=== PATIENT | female | born 1995 ===

== ENCOUNTER 2019-08-07 11:24 | Inpatient (IN) | payer BC ==
[2019-08-07] MEDS ORDERED: Bupivacaine/Epinephrine 0.25% 30 ML VIAL ONE (11:35)
[2019-08-07 12:42] VITALS: BMI 30.8
[2019-08-07] MEDS: Lactated Ringer's 1,000 ML IV SCH ×2 (12:45→18:50)
[2019-08-07] MEDS ORDERED: Acetaminophen 500 MG TAB PO PRN (13:40)
[2019-08-07] MEDS ORDERED: Diphenoxylate HCl/Atropine Tablet PO PRN ×2 (13:40)
[2019-08-07] MEDS ORDERED: Lidocaine 1% (PF) 30 ML VIAL SC PRN (13:40)
[2019-08-07] MEDS ORDERED: Misoprostol 200 MCG TAB PR PRN (13:40)
[2019-08-07] MEDS ORDERED: hydrALAZINE 20 MG/ML VIAL SLOW IVP PRN (13:40)
[2019-08-07] MEDS ORDERED: HYDROcodone/Acetaminophen 5/325 mg Tablet PO PRN ×2 (13:40)
[2019-08-07] MEDS ORDERED: Carboprost 250 MCG/ML AMP IM PRN (13:40)
[2019-08-07] MEDS ORDERED: Ondansetron PF 4 MG/2 ML Vial IVP PRN ×2 (13:40→19:41)
[2019-08-07] MEDS ORDERED: Promethazine HCl 25 MG/ML VIAL IM PRN ×2 (13:40→19:41)
[2019-08-07] MEDS ORDERED: NS / Oxytocin 40 units/1000ml 1,000 ML IV PRN (13:40)
[2019-08-07] MEDS ORDERED: Methylergonovine 0.2 MG/ML VIAL IM PRN (13:40)
[2019-08-07] MEDS ORDERED: Ibuprofen 800 MG TAB PO PRN (13:40)
[2019-08-07] MEDS ORDERED: Butorphanol Tartrate 1 MG/ML VIAL SLOW IVP PRN (13:40)
[2019-08-07 14:41] LABS: Hemoglobin 11.2 g/dL (12.0-16.0); Mean Corpuscular HGB CONC 34.5 g/dL (32.0-36.0); Mean Corpuscular Hemoglobin 30.4 pg (27.0-31.0); Mean Platelet Volume 10.1 fL (7.4-10.4); Platelet Count 180 thou/uL (130-400); RBC Distribution Width 12.9 % (11.5-14.5); Red Blood Cell (RBC) Count 3.69 mill/uL (4.20-5.40); White Blood Cell (WBC) Count 7.8 thou/uL (4.8-10.8)
[2019-08-07] MEDS ORDERED: NS w/ Oxytocin 10 units 500 ML IV SCH (15:00)
[2019-08-07 15:19] LABS: HBSAg Index 0.16 S/CO (0-0.99); Hep B Surf Ag Non-Reactive S/CO (NonReactive)
[2019-08-07 15:19] LABS: Syphilis Antibody Nonreactive (Nonreactive); Syphilis Antibody Index 0.07 S/CO (<1.00 Non-Reactive)
[2019-08-07] MEDS: Misoprostol 100 MCG TAB PO SCH (17:05)
[2019-08-07] MEDS ORDERED: Fentanyl 4 mcg/Bup 0.1% Cadd 100 ML ONE (19:03)
[2019-08-07] MEDS ORDERED: EPHEDRINE 25 MG/5 ML SYRINGE SLOW IVP PRN (19:41)
[2019-08-07] MEDS ORDERED: Acetaminophen 325 MG TAB PO PRN (19:41)
[2019-08-07] MEDS ORDERED: Naloxone HCl 0.4 mg/ml Vial IVP PRN ×2 (19:41)
[2019-08-07] MEDS ORDERED: Lactated Ringer's 500 ML IV PRN (19:41)
[2019-08-07] MEDS ORDERED: diphenhydrAMINE 50 MG/ML VIAL IVP PRN (19:41)
[2019-08-07] MEDS ORDERED: Communication Order-Pharmacy FS SCH (19:45)
[2019-08-07] MEDS ORDERED: Fentanyl 4 mcg/Bupivacaine 0.1% Cassette 100 ML EPIDURAL SCH (19:45)
[2019-08-07] MEDS ORDERED: CEFAZOLIN 2 GM in Premix Bag 1 BAG IVPB SCH (21:00)
[2019-08-07] MEDS ORDERED: Lidocaine 1% (PF) 30 ML VIAL ONE (23:36)
[2019-08-07] MEDS ORDERED: NS / Oxytocin 40 units/1000ml 1,000 ML ONE (23:36)
[2019-08-08] MEDS ORDERED: Lanolin Ointment 7 GM TUBE TOP PRN (03:49)
[2019-08-08] MEDS ORDERED: Zolpidem Tartrate 5 MG TAB PO PRN (03:49)
[2019-08-08] MEDS ORDERED: Methylergonovine 0.2 MG/ML VIAL IM PRN (03:49)
[2019-08-08] MEDS ORDERED: Benzocaine-Menthol 82.5 ML CAN TOP PRN (03:49)
[2019-08-08] MEDS ORDERED: diphenhydrAMINE 25 MG CAP PO PRN (03:49)
[2019-08-08] MEDS ORDERED: Preparation H Ointment 28 GM TUBE PR PRN (03:49)
[2019-08-08] MEDS ORDERED: HYDROcodone/Acetaminophen 5/325 mg Tablet PO PRN ×2 (03:49)
[2019-08-08] MEDS ORDERED: Ondansetron PF 4 MG/2 ML Vial IVP PRN (03:49)
[2019-08-08] MEDS ORDERED: Milk Of Magnesia 30 ML UDCUP PO PRN (03:49)
[2019-08-08] MEDS ORDERED: hydrALAZINE 20 MG/ML VIAL SLOW IVP PRN (03:49)
[2019-08-08] MEDS ORDERED: Misoprostol 200 MCG TAB VAG PRN (03:49)
[2019-08-08] MEDS ORDERED: Promethazine HCl 25 MG/ML VIAL IM PRN (03:49)
[2019-08-08] MEDS ORDERED: Bisacodyl 10 MG SUPP PR PRN (03:49)
[2019-08-08] MEDS ORDERED: NS / Oxytocin 40 units/1000ml 1,000 ML IV SCH (03:49)
[2019-08-08] MEDS: Misoprostol 100 MCG TAB PO SCH (04:50)
[2019-08-08] MEDS: Ibuprofen 800 MG TAB PO SCH ×3 (05:24→21:23)
[2019-08-08] MEDS: Ferrous Sulfate 325 MG TAB PO SCH ×2 (08:34→20:50)
[2019-08-08] MEDS: Docusate Calcium (SURFAK) 240 MG CAP PO SCH ×2 (08:37→21:23)
[2019-08-08] MEDS: Prenatal Vitamin 1 TAB PO SCH (08:37)
[2019-08-08] MEDS ORDERED: Adacel (T-DAP) 0.5 ML SYRINGE IM ONE (09:00)
[2019-08-08] MEDS ORDERED: Measles/Mumps/Rubella 10 MCG/0.5 ML VIAL SC ONE (09:00)
[2019-08-08] MEDS ORDERED: Varicella virus, LIVE 0.5 ML VIAL SC ONE (09:00)
[2019-08-09] MEDS: Ibuprofen 800 MG TAB PO SCH ×3 (05:40→21:42)
[2019-08-09 06:36] LABS: Hemoglobin 10.1 g/dL (12.0-16.0); Mean Corpuscular HGB CONC 33.6 g/dL (32.0-36.0); Mean Corpuscular Volume 89.3 fL (78.0-98.0); Mean Platelet Volume 9.3 fL (7.4-10.4); Platelet Count 149 thou/uL (130-400); RBC Distribution Width 12.8 % (11.5-14.5); Red Blood Cell (RBC) Count 3.37 mill/uL (4.20-5.40); White Blood Cell (WBC) Count 8.9 thou/uL (4.8-10.8)
[2019-08-09] MEDS: Docusate Calcium (SURFAK) 240 MG CAP PO SCH ×2 (08:36→21:43)
[2019-08-09] MEDS: Prenatal Vitamin 1 TAB PO SCH (08:36)
[2019-08-09] MEDS: Ferrous Sulfate 325 MG TAB PO SCH ×2 (08:40→18:05)
--- NOTE | 2019-08-09 14:40 | PDOC.LDHP ---
Labor and Delivery H&P Chief complaint: loss of fluid HPI: 23 y/o at 38 and 6/7 weeks presents with SROM and early labor. Current gestational age (weeks): 38 Due date: 08/15/19 Grav: 1 Para: 0 Current complications: none Abnormal US findings: No Current medications: pre-rommel vitamins Previous surgical history: none Allergies/Adverse Reactions: Allergies Allergy/AdvReac Type Severity Reaction Status Date / Time No Known Allergies Allergy Unverified 08/07/19 12:39 Social history: none - Physical Exam Vital signs reviewed and normal: yes General: NAD, resting Lungs: CTAB Abdomen: gravid FHT: category 1 - Assessment L&D Assessment: term rupture in membranes - Plan Plan: admit to L&D, labor augmentation if indicated
--- NOTE | 2019-08-09 14:46 | PDOC.PP ---
Post Progress Note Post Day #: 1 PO intake tolerated: yes Flatus: yes Ambulation: yes Vital Signs (12 hours) Temp Pulse Resp BP Pulse Ox 08/09/19 08:03 98.1 F 81 20 129/85 99 Weight Weight 163 lb - Physical Examination General: NAD Cardiovascular: no m/r/g, RRR Respiratory: clear to auscultation bilaterally Abdominal: + bowel sounds, lochia, no distention Extremities: negative homans (B) Neurological: no gross focal deficits Psychiatric: A&Ox3, normal affect (DC planned later today) Result Diagrams: 08/09/19 06:27 Additional Labs: Post Labs Blood Type O POSITIVE 08/07/19 15:26 Hep Bs Antigen Non-Reactive S/CO (NonReactive) 08/07/19 14:24
[2019-08-10] MEDS: Ibuprofen 800 MG TAB PO SCH (05:22)
[2019-08-10 08:15] VITALS: BP 126/78; TEMP 98.5
[2019-08-10] MEDS: Ferrous Sulfate 325 MG TAB PO SCH (08:15)
[2019-08-10] MEDS: Docusate Calcium (SURFAK) 240 MG CAP PO SCH (09:13)
[2019-08-10] MEDS: Prenatal Vitamin 1 TAB PO SCH (09:13)
== END 2019-08-10 11:20 | disposition home or self-care (01) | DRG 806 ==
LOC: L&D/OP 11:24 → L&D 17:34 → 3SW 08-08 04:45
PROVIDERS: ADMIT Obstetrics & Gynecology; ATTEND Obstetrics & Gynecology
PROC: 10E0XZZ Delivery of Products of Conception, External Approach (ICD-10-PCS; principal; 2019-08-08)
PROC: 0UQGXZZ Repair Vagina, External Approach (ICD-10-PCS; 2019-08-08)
DX: O69.81X0 Labor and delivery complicated by cord around neck, without compression, not applicable or unspecified (principal); O71.4 Obstetric high vaginal laceration alone; Z37.0 Single live birth; Z3A.39 39 weeks gestation of pregnancy
CPT/HCPCS: 36415; 51702; 85027; 86780; 86850; 86900; 86901; 87340; 90715; 99285; J0690; J2001; J2590